=== PATIENT | female | born 1955 | race Caucasian/White ===

== ENCOUNTER 2017-02-09 12:56 | Inpatient (IN) | payer OTHER, MEDICAID ==
[~2017-02-09] VITALS: Ht 170.2 cm; Wt 74.0 kg
[~2017-02-09 12:56] MED LIST: ESCI20TA; LEVO75CA2 PO; MESA1.2T PO; PREG100C PO; TRAZ100T15 PO
[2017-02-09] MEDS ORDERED: SODIUM CHLORIDE 0.9% 1,000 ML IV ONE (13:09)
[2017-02-09] MEDS ORDERED: ONDANSETRON 2MG/ML, 2ML ONE (13:14)
[2017-02-09] MEDS ORDERED: MECLIZINE CHEWABLE 25 MG TAB ONE (13:14)
[2017-02-09] MEDS ORDERED: ONDANSETRON 2MG/ML, 2ML IVPush ONE (13:30)
[2017-02-09] MEDS ORDERED: MECLIZINE CHEWABLE 25 MG TAB PO ONE (13:30)
[2017-02-09 14:00] LABS: BLOOD UREA NITROGEN 11 mg/dL (7-18)
[2017-02-09 14:05] LABS: ASPARTATE AMINO TRANSFERASE 18 U/L (15-37)
[2017-02-09] MEDS ORDERED: DOCUSATE 100 MG CAPSULE PO PRN (18:00)
[2017-02-09] MEDS ORDERED: BISACODYL 10 MG SUPP PR PRN (18:00)
[2017-02-09] MEDS ORDERED: ONDANSETRON 2MG/ML, 2ML IVPush PRN (18:00)
[2017-02-09] MEDS ORDERED: POLYETHYLENE GLYCOL 17 GM PACKET PO PRN (18:00)
[2017-02-09] MEDS: ACETAMINOPHEN 325 MG TABLET PO PRN (19:51)
[2017-02-09 20:00] VITALS: BP 93/57
[2017-02-09] MEDS: MECLIZINE 12.5 MG TABLET PO PRN (20:49)
[2017-02-09] MEDS: TRAZODONE 100MG TABLET PO SCH (20:50)
[2017-02-09] MEDS: PREGABALIN 100 MG CAPSULE PO SCH (20:50)
[2017-02-09] MEDS: SODIUM CHLORIDE 0.9% 1,000 ML IV SCH (20:51)
[2017-02-09] MEDS: ENOXAPARIN 40 MG/0.4 ML SQ SCH (20:51)
[2017-02-10 03:30] VITALS: BP 95/60
[2017-02-10 05:32] LABS: ASPARTATE AMINO TRANSFERASE 16 U/L (15-37); BLOOD UREA NITROGEN 9 mg/dL (7-18)
[2017-02-10] MEDS: SODIUM CHLORIDE 0.9% 1,000 ML IV SCH (06:06)
[2017-02-10 07:01] VITALS: BP 94/54
[2017-02-10] MEDS: ACETAMINOPHEN 325 MG TABLET PO PRN (08:11)
[2017-02-10] MEDS: PREGABALIN 100 MG CAPSULE PO SCH ×2 (08:11→20:47)
[2017-02-10] MEDS: MECLIZINE 12.5 MG TABLET PO PRN (08:12)
[2017-02-10] MEDS: MESALAMINE 1.2 GM TABLET.DR PO SCH (08:21)
[2017-02-10] MEDS ORDERED: LEVOTHYROXINE SODIUM SCH (09:00)
[2017-02-10] MEDS ORDERED: KETOROLAC 30 MG/1 ML IVPush SCH (12:30)
[2017-02-10] MEDS: KETOROLAC 30 MG/1 ML IVPush PRN ×2 (12:39→18:33)
[2017-02-10 16:00] VITALS: BP 95/59
[2017-02-10] MEDS ORDERED: DIPHENHYDRAMINE 50 MG/ML, 1ML IVPush ONE (16:00)
[2017-02-10 19:11] VITALS: BP 96/59
[2017-02-10] MEDS: ENOXAPARIN 40 MG/0.4 ML SQ SCH (20:48)
[2017-02-10] MEDS: TRAZODONE 100MG TABLET PO SCH (20:48)
[2017-02-11 01:19] VITALS: BP 91/54
[2017-02-11] MEDS: KETOROLAC 30 MG/1 ML IVPush PRN ×2 (04:42→14:25)
[2017-02-11] MEDS: ASPIRIN 81 MG TABLET EC PO SCH (05:50)
[2017-02-11] MEDS: ACETAMINOPHEN 325 MG TABLET PO PRN (05:52)
[2017-02-11 06:42] LABS: BLOOD UREA NITROGEN 7 mg/dL (7-18)
[2017-02-11 06:54] VITALS: BP 104/66
[2017-02-11] MEDS ORDERED: GADOBUTROL 7.5 MMOL/7.5 ML PFS ONE (08:24)
[2017-02-11] MEDS: LEVOTHYROXINE SODIUM PO SCH (09:00)
[2017-02-11] MEDS: MESALAMINE 1.2 GM TABLET.DR PO SCH (09:32)
[2017-02-11] MEDS: PREGABALIN 100 MG CAPSULE PO SCH ×2 (09:32→20:12)
[2017-02-11 13:45] VITALS: BP 115/66
[2017-02-11] MEDS: ENOXAPARIN 40 MG/0.4 ML SQ SCH (20:12)
[2017-02-11] MEDS: TRAZODONE 100MG TABLET PO SCH (20:13)
[2017-02-11 20:27] VITALS: BP 93/58
[2017-02-12 02:16] VITALS: BP 118/72
[2017-02-12] MEDS: ASPIRIN 81 MG TABLET EC PO SCH (06:19)
[2017-02-12] MEDS: LEVOTHYROXINE SODIUM PO SCH (07:53)
[2017-02-12] MEDS: MESALAMINE 1.2 GM TABLET.DR PO SCH (07:57)
[2017-02-12] MEDS: PREGABALIN 100 MG CAPSULE PO SCH (07:57)
[2017-02-12 08:05] VITALS: BP 130/71
[2017-02-12] MEDS ORDERED: MECL12.52 PO (10:22)
== END 2017-02-12 11:30 | disposition home or self-care (01) | DRG 149 ==
LOC: ED 14:12 → EDIP 16:46 → 3NE 18:58 → DCLOUNGE 02-12 11:14
PROVIDERS: ADMIT Internal Medicine; ATTEND Internal Medicine
DX: H81.10 Benign paroxysmal vertigo, unspecified ear (principal); E44.0 Moderate protein-calorie malnutrition; K51.90 Ulcerative colitis, unspecified, without complications; R51 Headache; R27.0 Ataxia, unspecified; E03.9 Hypothyroidism, unspecified; E86.0 Dehydration; F10.21 Alcohol dependence, in remission; H54.7 Unspecified visual loss; K59.00 Constipation, unspecified; M79.7 Fibromyalgia; W01.0XXA Fall on same level from slipping, tripping and stumbling without subsequent striking against object, initial encounter; Z82.0 Family history of epilepsy and other diseases of the nervous system; Z87.891 Personal history of nicotine dependence; Z85.3 Personal history of malignant neoplasm of breast; Z92.21 Personal history of antineoplastic chemotherapy; Z92.3 Personal history of irradiation; Z68.25 Body mass index [BMI] 25.0-25.9, adult
CPT/HCPCS: 36415; 70450; 70553; 80048; 80053; 81003; 84439; 84443; 85025; 93005; 96374; A9585; J1650; J1885; J2405; J1200; J7030

== ENCOUNTER → 2017-07-04 | Outpatient (CLI) | payer OTHER, MEDICAID ==
[~2017-07-04] MED LIST changes: +MECL12.52 PO
== END | disposition home or self-care (01) ==
LOC: CFH 07:43
PROVIDERS: ATTEND Internal Medicine Cardiovascular Disease
DX: I08.3 Combined rheumatic disorders of mitral, aortic and tricuspid valves (principal); Z87.891 Personal history of nicotine dependence; Z85.3 Personal history of malignant neoplasm of breast
CPT/HCPCS: 78452; 93017; 93306; A9502

== ENCOUNTER 2018-07-14 14:04 | Emergency (ER) | payer OTHER, MEDICAID ==
[~2018-07-14] VITALS: Ht 162.6 cm; Wt 62.6 kg
[~2018-07-14 14:04] MED LIST changes: +TRAZ-137 PO; -TRAZ100T15 PO
[2018-07-14] MEDS ORDERED: SODIUM CHLORIDE FLUSH 10ML SYR IVF ONE (14:30)
[2018-07-14 15:10] LABS: BASOPHILS # (AUTO) 0.03 x10^3/uL (0-0.1); BASOPHILS % (AUTO) 1 % (0-1); EOSINOPHILS # (AUTO) 0.04 x10^3/uL (0-0.4); EOSINOPHILS % (AUTO) 1 % (1-7); LYMPHOCYTES # (AUTO) 1.38 x10^3/uL (1-3.4); LYMPHOCYTES % (AUTO) 25 % (22-44); MD NO; MEAN CORPUSCULAR HGB CONC 33.2 g/dL (32.4-35.8); MEAN CORPUSCULAR VOLUME 87.3 fL (80-100); MEAN PLATELET VOLUME 8.3 fL (7.4-10.4); MONOCYTES # (AUTO) 0.46 x10^3/uL (0.2-0.8); MONOCYTES % (AUTO) 8 % (2-9); NEUTROPHILS # (AUTO) 3.59 x10^3/uL (1.8-6.8); NEUTROPHILS % (AUTO) 65 % (42-75); PLATELET COUNT 288 x10^3/uL (130-400); RED BLOOD COUNT 4.06 x10^6/uL (3.82-5.3); RED CELL DISTRIBUTION WIDTH 14.3 % (9.6-15.2)
[2018-07-14 15:20] LABS: ALBUMIN 4.1 g/dL (3.4-5.0); ANION GAP 8 mmol/L (5-15); CALCIUM 8.7 mg/dL (8.5-10.1); CHLORIDE 108 mmol/L (98-107)
[2018-07-14 15:26] LABS: ALANINE AMINOTRANSFERASE 16 U/L (12-78); ALKALINE PHOSPHATASE 40 U/L (45-117); BILIRUBIN,TOTAL 0.4 mg/dL (0.2-1.0); CREATININE 0.89 mg/dL (0.55-1.02); TOTAL PROTEIN 7.1 g/dL (6.4-8.2); TROPONIN I < 0.015 ng/mL (0.000-0.045)
[2018-07-14] MEDS ORDERED: BUDESONIDE (15:47)
[2018-07-14] MEDS ORDERED: TRAM100T13 PO (15:47)
[2018-07-14] MEDS ORDERED: ESCI5TAB7 PO (15:47)
[2018-07-14 15:51] VITALS: BP 101/74
[2018-07-14] MEDS ORDERED: MECLIZINE CHEWABLE 25 MG TAB ONE (16:23)
[2018-07-14] MEDS ORDERED: HYDROcodone/APAP 5/325 TABLET ONE (16:23)
[2018-07-14] MEDS ORDERED: HYDROcodone/APAP 10/325 MG TABLET ONE (16:25)
[2018-07-14] MEDS ORDERED: MECLIZINE CHEWABLE 25 MG TAB PO ONE (16:30)
[2018-07-14] MEDS ORDERED: HYDROcodone/APAP 10/325 MG TABLET PO ONE (16:30)
== END 2018-07-14 17:16 | disposition home or self-care (01) ==
LOC: ED 17:00
DX: R51 Headache (principal); R20.2 Paresthesia of skin; Z86.39 Personal history of other endocrine, nutritional and metabolic disease
CPT/HCPCS: 36415; 70450; 71045; 80053; 84484; 85025; 93005; 99285

== ENCOUNTER 2019-11-30 15:09 | Emergency (ER) | payer MEDICAID, MEDICARE ==
[~2019-11-30] VITALS: Ht 162.6 cm; Wt 65.0 kg
[~2019-11-30 15:09] MED LIST changes: +BUDESONIDE; +ESCI5TAB7 PO; -MECL12.52 PO; +MECL12.581 PO; +TRAM100T13 PO; -TRAZ-137 PO; +TRAZ-175 PO
[2019-11-30 17:52] LABS: BASOPHILS # (AUTO) 0.03 x10^3/uL (0-0.1); BASOPHILS % (AUTO) 1 % (0-1); EOSINOPHILS # (AUTO) 0.14 x10^3/uL (0-0.4); EOSINOPHILS % (AUTO) 3 % (1-7); HCT (SEDRATE) 41.7 % (34.6-47.8); LYMPHOCYTES # (AUTO) 1.84 x10^3/uL (1-3.4); LYMPHOCYTES % (AUTO) 33 % (22-44); MD NO; MEAN CORPUSCULAR HEMOGLOBIN 29.5 pg (27.0-34.8); MEAN CORPUSCULAR HGB CONC 33.5 g/dL (32.4-35.8); MEAN PLATELET VOLUME 8.1 fL (7.4-10.4); MONOCYTES # (AUTO) 0.65 x10^3/uL (0.2-0.8); MONOCYTES % (AUTO) 12 % (2-9); NEUTROPHILS # (AUTO) 2.84 x10^3/uL (1.8-6.8); NEUTROPHILS % (AUTO) 52 % (42-75); PLATELET COUNT 239 x10^3/uL (130-400); RED BLOOD COUNT 4.66 x10^6/uL (3.82-5.3); RED CELL DISTRIBUTION WIDTH 13.9 % (9.6-15.2)
[2019-11-30 18:01] LABS: ALANINE AMINOTRANSFERASE 29 U/L (12-78); ALBUMIN 4.1 g/dL (3.4-5.0); ANION GAP 4 mmol/L (5-15); CALCIUM 9.1 mg/dL (8.5-10.1); CHLORIDE 107 mmol/L (98-107); CREATININE 0.74 mg/dL (0.55-1.02)
[2019-11-30 18:03] LABS: ALKALINE PHOSPHATASE 78 U/L (45-117); BILIRUBIN,TOTAL 0.3 mg/dL (0.2-1.0); TOTAL PROTEIN 7.1 g/dL (6.4-8.2)
--- NOTE | 2019-11-30 19:14 | NUR ---
pt to room from lobby
--- NOTE | 2019-11-30 19:24 | NUR ---
ASSUMED CARE OF PT.
--- NOTE | 2019-11-30 20:03 | NUR ---
SAHM WAS AT BEDSIDE PLAN FOR HEAD CT.
[2019-11-30 20:45] VITALS: BP 107/53
--- NOTE | 2019-11-30 20:55 | NUR ---
RECHECK RESULTS WNL.
--- NOTE | 2019-11-30 21:00 | NUR ---
[facility]
== END 2019-11-30 21:28 | disposition home or self-care (01) ==
LOC: ED 21:22
DX: G43.001 Migraine without aura, not intractable, with status migrainosus (principal); M54.2 Cervicalgia; G89.29 Other chronic pain; Z85.3 Personal history of malignant neoplasm of breast
CPT/HCPCS: 36415; 70450; 80053; 85025; 85651; 99284

== ENCOUNTER 2020-03-10 08:14 | Outpatient (CLI) | payer MEDICAID, MEDICARE ==
[2020-03-10] MEDS ORDERED: FENTANYL PF 100 MCG/2ML ONE ×2 (08:51)
[2020-03-10] MEDS ORDERED: MIDAZOLAM 1 MG/ML, 5ML ONE (08:51)
== END 2020-03-10 23:59 | disposition home or self-care (01) ==
LOC: RAD 08:14 → EDSTATUS 09:00 → RAD 23:59
PROVIDERS: ATTEND Nurse Practitioner
DX: M54.12 Radiculopathy, cervical region (principal); M81.0 Age-related osteoporosis without current pathological fracture; M43.12 Spondylolisthesis, cervical region; M48.02 Spinal stenosis, cervical region; M16.11 Unilateral primary osteoarthritis, right hip; N83.202 Unspecified ovarian cyst, left side
CPT/HCPCS: 72141; 73721; J2250; J3010; 99156; 99157